=== PATIENT | female | born 1940 | race Two or more races ===

== ENCOUNTER 2023-05-10 19:26 | Inpatient (IN) | payer OTHER, MEDICAID ==
[~2023-05-10] VITALS: Ht 142.2 cm; Wt 51.0 kg
[2023-05-10 20:22] LABS: Basophils # (auto) 0 10 ^3/uL (0-0.2); Eosinophils # (auto) 0.2 10 ^3/uL (0-0.8); Monocytes # (auto) 0.6 10 ^3/uL (0-1.3)
[2023-05-10 20:24] LABS: Basophils % (auto) 0.7 % (0.0-2.0); Eosinophils % (auto) 3.4 % (0.0-7.0); Hematocrit 21.2 % (36.0-46.0); Lymphocytes # (auto) 2.2 10 ^3/uL (0.4-5.4); Lymphocytes % (auto) 34.1 % (10.0-50.0); Mean Corpuscular Hemoglobin 17.6 pg (28.0-32.0); Mean Corpuscular Hgb Conc. 29.6 g/dL (32.0-36.0); Mean Corpuscular Volume 59.4 fL (80.0-100.0); Monocytes % (auto) 9.2 % (0.0-12.0); Neutrophils # (auto) 3.4 10 ^3/uL (1.6-8.6); Neutrophils % (auto) 52.6 % (37.0-80.0); Red Blood Cells 3.57 10^6/uL (4.0-5.20); Red Cell Distribution Width 17.9 % (11.8-14.3); White Blood Cell 6.4 10^3/uL (4.4-10.8)
[2023-05-10 20:28] LABS: Hemoglobin 6.3 g/dL (12.2-16.2)
[2023-05-10 20:38] LABS: Alanine Aminotransferase 15 U/L (7-40); Albumin 4.9 g/dL (3.2-4.8); Alkaline Phosphatase 94 U/L (46-116); Anion Gap 7 (5-15); Aspartate Aminotransferase 15 U/L (13-40); BUN/Creatinine Ratio 12.9 (10.0-20.0); Bilirubin, Total 0.4 mg/dL (0.2-1.0); Blood Urea Nitrogen 13 mg/dL (9-23); Calcium 9.1 mg/dL (8.7-10.4); Carbon Dioxide 25 mmol/L (20-30); Chloride 108 mmol/L (98-107); Glucose 108 mg/dL (74-106); Potassium 4.1 mmol/L (3.5-5.1); Sodium 140 mmol/L (136-145)
[2023-05-10 20:41] LABS: Anisocytosis Moderate; Hypochromia Marked; Ovalocytes FEW; Platelet Estimate Adequate
[2023-05-10 20:42] LABS: Large Platelets FEW
[2023-05-10 21:04] LABS: Urine Bacteria FEW /hpf (None Seen); Urine Blood Negative /uL (Negative); Urine Clarity Clear (Clear); Urine Color Colorless (Yellow); Urine Mucus FEW (None Seen); Urine Protein, UAD Negative (Negative); Urine Specific Gravity 1.007 (1.001-1.035); Urine Urobilinogen Normal (Negative); Urine WBC <1 /hpf (0 - 5); Urine pH 7.5 (5.0-8.0)
[2023-05-10] MEDS ORDERED: DOCUSATE SOD 100 MG CAP PO PRN (21:15)
[2023-05-10] MEDS ORDERED: MORPHINE SULFATE INJ 2 MG/ml SYRG IV PRN (21:15)
[2023-05-10] MEDS ORDERED: NITROGLYCERIN 0.4 MG SL TAB SL PRN (21:15)
[2023-05-10] MEDS ORDERED: ACETAMINOPHEN 325 MG TAB PO PRN (21:15)
[2023-05-10] MEDS ORDERED: ONDANSETRON HCL 4 MG/2 ML VIAL IV PRN (21:15)
[2023-05-10] MEDS ORDERED: HYDROcodone-ACET 5/325MG TAB PO PRN (21:15)
[2023-05-10 22:32] VITALS: PULSE 94; RESP 33; O2SAT 99
[2023-05-10] MEDS: ATORVASTATIN 20 MG TAB PO SCH (22:42)
[2023-05-10] MEDS: CARVEDILOL 3.125 MG TAB PO SCH (22:45)
[2023-05-10] MEDS: FAMOTIDINE (10MG/ML) 2ML VL IV SCH (22:45)
[2023-05-10] MEDS: SODIUM CHLOR 0.9% PF (SALINE LOCK) 10ML VIAL/SYR IV SCH (22:45)
[2023-05-10 23:06] LABS: % Iron Saturation 2.2 % (15-50)
[2023-05-10 23:25] LABS: Ferritin 2.6 ng/mL (10-291); Folate (Folic Acid) 14.55 ng/mL (>5.38)
[2023-05-10] MEDS: hydrALAZINE HCL 20 MG/ML VL IV PRN (23:57)
[2023-05-11] VITALS (16 sets, daily range): BP systolic 101–175; BP diastolic 32–71; PULSE 67–89; RESP 13–18; TEMP 98.1–98.6; O2SAT 95–99
[2023-05-11] MEDS ORDERED: hydrALAZINE HCL 20 MG/ML VL IV ONE (01:15)
[2023-05-11] MEDS ORDERED: ALEN70TA74 PO (03:12)
[2023-05-11] MEDS ORDERED: GABA-1308 PO (03:12)
[2023-05-11] MEDS ORDERED: FURO20TA3 PO (03:12)
[2023-05-11] MEDS ORDERED: PANT40TA2 PO (03:12)
[2023-05-11] MEDS ORDERED: ATOR20TA PO (03:12)
[2023-05-11] MEDS ORDERED: METO-158 PO (03:12)
[2023-05-11] MEDS: SODIUM CHLOR 0.9% PF (SALINE LOCK) 10ML VIAL/SYR IV SCH ×3 (05:19→23:50)
[2023-05-11] MEDS: hydrALAZINE HCL 20 MG/ML VL IV PRN ×2 (05:19→16:26)
[2023-05-11 09:09] LABS: Alanine Aminotransferase 12 U/L (7-40); Albumin 4.5 g/dL (3.2-4.8); Alkaline Phosphatase 72 U/L (46-116); Anion Gap 8 (5-15); Aspartate Aminotransferase 18 U/L (13-40); BUN/Creatinine Ratio 12.3 (10.0-20.0); Blood Urea Nitrogen 9 mg/dL (9-23); Calcium 8.8 mg/dL (8.7-10.4); Carbon Dioxide 23 mmol/L (20-30); Chloride 110 mmol/L (98-107); Glucose 106 mg/dL (74-106); Potassium 3.2 mmol/L (3.5-5.1); Sodium 141 mmol/L (136-145)
[2023-05-11 09:10] LABS: Bilirubin, Total 0.7 mg/dL (0.2-1.0); Total Protein 6.7 g/dL (5.7-8.2)
[2023-05-11 09:28] LABS: Basophils # (auto) 0 10 ^3/uL (0-0.2); Eosinophils # (auto) 0.1 10 ^3/uL (0-0.8); Hemoglobin 8.2 g/dL (12.2-16.2); Lymphocytes # (auto) 1.1 10 ^3/uL (0.4-5.4)
[2023-05-11 09:31] LABS: Basophils % (auto) 0.6 % (0.0-2.0); Eosinophils % (auto) 1.7 % (0.0-7.0); Hematocrit 26.1 % (36.0-46.0); Lymphocytes % (auto) 18.5 % (10.0-50.0); Mean Corpuscular Hemoglobin 20.9 pg (28.0-32.0); Mean Corpuscular Hgb Conc. 31.3 g/dL (32.0-36.0); Mean Corpuscular Volume 66.8 fL (80.0-100.0); Monocytes # (auto) 0.5 10 ^3/uL (0-1.3); Monocytes % (auto) 8.8 % (0.0-12.0); Neutrophils # (auto) 4.2 10 ^3/uL (1.6-8.6); Neutrophils % (auto) 70.4 % (37.0-80.0); Nucleated Red Blood Cells % 0.1 %; Red Blood Cells 3.91 10^6/uL (4.0-5.20); Red Cell Distribution Width 18.3 % (11.8-14.3)
[2023-05-11] MEDS: FAMOTIDINE (10MG/ML) 2ML VL IV SCH ×2 (11:15→23:50)
[2023-05-11] MEDS: CARVEDILOL 3.125 MG TAB PO SCH (11:15)
[2023-05-11] MEDS: FUROSEMIDE 20 MG/2 ML VIAL IV SCH (11:15)
[2023-05-11 15:27] LABS: % Iron Saturation 8.1 % (15-50)
[2023-05-11 15:30] LABS: Folate (Folic Acid) 15.17 ng/mL (>5.38)
[2023-05-11] MEDS ORDERED: POTASSIUM CHL 20 Meq TABLET PO ONE (15:30)
[2023-05-11] MEDS ORDERED: METOPROLOL TARTRATE 50 MG TAB PO ONE (15:30)
[2023-05-11] MEDS: ATORVASTATIN 20 MG TAB PO SCH (21:48)
[2023-05-11] MEDS: METOPROLOL TARTRATE 50 MG TAB PO SCH (21:48)
[2023-05-12] MEDS: hydrALAZINE HCL 20 MG/ML VL IV PRN ×2 (00:01→13:40)
[2023-05-12 05:19] LABS: Basophils # (auto) 0 10 ^3/uL (0-0.2); Basophils % (auto) 0.4 % (0.0-2.0); Eosinophils # (auto) 0.1 10 ^3/uL (0-0.8); Hemoglobin 10.4 g/dL (12.2-16.2); Lymphocytes # (auto) 1.3 10 ^3/uL (0.4-5.4); Monocytes # (auto) 0.9 10 ^3/uL (0-1.3); Neutrophils # (auto) 5.8 10 ^3/uL (1.6-8.6)
[2023-05-12 05:20] LABS: Eosinophils % (auto) 1.1 % (0.0-7.0); Hematocrit 32.5 % (36.0-46.0); Lymphocytes % (auto) 15.7 % (10.0-50.0); Mean Corpuscular Hemoglobin 22.5 pg (28.0-32.0); Mean Corpuscular Volume 70.3 fL (80.0-100.0); Monocytes % (auto) 11.6 % (0.0-12.0); Neutrophils % (auto) 71.2 % (37.0-80.0); Red Blood Cells 4.63 10^6/uL (4.0-5.20); White Blood Cell 8.1 10^3/uL (4.4-10.8)
[2023-05-12 05:22] LABS: Red Cell Distribution Width 34.5 % (11.8-14.3)
[2023-05-12 05:25] VITALS: BP 122/51; PULSE 77; RESP 18; TEMP 98.8; O2SAT 97
[2023-05-12 05:42] LABS: Alanine Aminotransferase 11 U/L (7-40); Albumin 4.1 g/dL (3.2-4.8); Alkaline Phosphatase 72 U/L (46-116); Anion Gap 9 (5-15); Aspartate Aminotransferase 15 U/L (13-40); BUN/Creatinine Ratio 10.3 (10.0-20.0); Blood Urea Nitrogen 8 mg/dL (9-23); Carbon Dioxide 21 mmol/L (20-30); Chloride 109 mmol/L (98-107); Glucose 108 mg/dL (74-106); Potassium 3.4 mmol/L (3.5-5.1); Sodium 139 mmol/L (136-145)
[2023-05-12 05:43] LABS: Bilirubin, Total 1.5 mg/dL (0.2-1.0); Total Protein 6.7 g/dL (5.7-8.2)
[2023-05-12] MEDS: SODIUM CHLOR 0.9% PF (SALINE LOCK) 10ML VIAL/SYR IV SCH (06:00)
[2023-05-12 07:30] VITALS: BP 189/82; PULSE 65; PULSE 71; TEMP 37.1
[2023-05-12 08:00] VITALS: PULSE 76; RESP 16
[2023-05-12 09:00] VITALS: BP 187/83; PULSE 76; RESP 16; TEMP 98.5; O2SAT 100
[2023-05-12] MEDS ORDERED: SODIUM CHLORIDE 0.9% 1,000 ML IV SCH (10:00)
[2023-05-12] MEDS ORDERED: POTASSIUM CHL 20 Meq TABLET PO ONE (10:00)
[2023-05-12] MEDS: METOPROLOL TARTRATE 50 MG TAB PO SCH (10:13)
[2023-05-12] MEDS: FAMOTIDINE (10MG/ML) 2ML VL IV SCH (10:14)
[2023-05-12] MEDS: FUROSEMIDE 20 MG/2 ML VIAL IV SCH (10:14)
== END 2023-05-12 15:15 | disposition left against medical advice (07) | DRG 811 ==
LOC: ER 19:26 → TELE 21:18 → TELE-EAST 05-11 00:44
PROVIDERS: ADMIT Nurse Practitioner Family; ATTEND Family Medicine
PROC: 30233N1 Transfusion of Nonautologous Red Blood Cells into Peripheral Vein, Percutaneous Approach (ICD-10-PCS; principal; 2023-05-11)
DX: D64.9 Anemia, unspecified (principal); I50.33 Acute on chronic diastolic (congestive) heart failure; E44.0 Moderate protein-calorie malnutrition; E78.5 Hyperlipidemia, unspecified; I11.0 Hypertensive heart disease with heart failure; E87.6 Hypokalemia; R79.89 Other specified abnormal findings of blood chemistry; Z53.29 Procedure and treatment not carried out because of patient's decision for other reasons; Z68.25 Body mass index [BMI] 25.0-25.9, adult
CPT/HCPCS: 36415; 36430; 71045; 80053; 81001; 82378; 82607; 82728; 82746; 83540; 83550; 83615; 83880; 84484; 85025; 85045; 86850; 86900; 86901; 86920; 93005; 93306; 96374; 99291; G0378; J3490

== ENCOUNTER 2024-09-10 15:04 | Emergency (ER) | payer OTHER, MEDICAID ==
[~2024-09-10] VITALS: Ht 149.9 cm; Wt 5.0 kg
[~2024-09-10 15:04] MED LIST: ALEN70TA74 PO; ATOR20TA PO; FURO20TA3 PO; GABA-1308 PO; METO-158 PO; PANT40TA2 PO
[2024-09-10 15:20] VITALS: BP 154/64
[2024-09-10 15:42] VITALS: PULSE 68; RESP 18; O2SAT 98
--- NOTE | 2024-09-10 16:07 | DVH ---
CHEST RADIOGRAPH Indication: low K Technique: Single frontal view of the chest was obtained Comparison: XY CHEST XRAY 1 VIEW on DOS: 05/11/23 FINDINGS: Lines and Tubes: None Lungs: Minimal right lower lung zone opacity. Metallic densities overlying the midline lower mediasti num which is most likely external to the patient Pleura: No effusion. No pneumothorax. Cardiomediastinal contours: Borderline cardiomegaly with mild atherosclerotic calcification and uncoi ling of the aorta Bones: No acute osseous abnormality. IMPRESSION: Right lower lung zone pneumonia/atelectasis.
--- NOTE | 2024-09-10 16:08 | ED.PDOC ---
History of Present Illness HPI Comments HPI: 84 year old female accompanied by daughter presents to the ED with chief complaint of abnormal labs. Daughter reports that the patient had labs drawn on Sunday, ordered by her PCP. Daughter relays that the patient had received a call today from her PCP noting low Potassium and was advised to come to the ED for treatment. Patient denies any and all symptoms at this time. Initial Vitals: Temp: 97.8F BP: 154/64 HR: 69 RR: 18 O2 Sat.: 98% Past Medical History: HTN, CHF Past Surgical History: Oophorectomy Social History: Denies smoking, ETOH, and drug use Medication: Metoprolol, Furosemide Allergies: NKDA ZHANG: HPI: Poor Historian. REVIEW OF SYSTEMS: CONSTITUTIONAL: Denies acute: fever, diaphoresis, chills, generalized weakness. HEAD: Denies acute: headache, photophobia Eyes: Denies acute: Double vision, vision loss, eye pain, eye discharge. EARS: Denies acute: tinnitus, hearing loss, ear discharge, ear pain, THROAT: Denies acute: sore throat, swelling, difficulty swallowing , pain with swallowing, change in voice. NECK: Denies acute: neck pain, neck swelling, stiff neck. HEART: Denies acute : chest pain, palpitations, LUNGS: Denies acute: SOB, wheezing, cough, hemoptysis ABDOMEN: Denies acute: abdominal pain, Nausea, Vomiting, diarrhea, melena , hematemesis, hematochezia SKIN: Denies acute: rash, redness, lesions, itchiness. EXTREMITIES: Denies acute: calf pain, numbness, tingling, weakness, denies pain in extremity. Denies acute: Low back pain. Neuro: Denies acute: focal neurological deficit, motor or sensory focal neurological deficit, tremors, seizure like activity, confusion, dizziness, change in mental status, loss of bowel or bladder function, cauda equina like symptoms. : Denies acute: dysuria, hematuria, flank pain, increase in urinary frequency. PSYCH: Denies acute: hallucination, suicidal ideation, homicidal ideation. FEMALE: Denies acute: abnormal vaginal bleeding, foul odor, unusual discharge. PHYSICAL EXAM: General: no acute distress, awake and alert. Head: normocephalic, atraumatic. Neck: supple, trachea is midline, no swelling. Throat: Normal phonation. Eyes:, no erythema, no purulent discharge, no proptosis, no icterus. Heart: regular rate, regular rhythm, no significant murmur appreciated. Lungs: no apparent respiratory distress, Able to speak in full sentences. No wheezing, no rhonchi, no crackles. No stridors Clear to auscultation bilaterally. Abdomen: non tender to palpation, non distended, soft, no guarding, no rebound, + bowel sounds. Neuro: Awake, Alert, oriented to name, self, situation, follows commands GCS=15. Speech is normal. Skin: no petechia, no purpura, no cyanosis, non-pale, not jaundice. Lower extremities: --no - Pitting edema no deformity, no focal swelling, no calf TTP. Makes eye contact. moves all four extremities. Face: no apparent facial droop. Ambulating in the ED independently. Chief Complaint: Abnormal LAB's Time Seen by MD: 16:04 Primary Care Provider: CRISTIAN Gonzalez Notes: Medications, Allergies Allergies: Coded Allergies: NO KNOWN ALLERGIES (Unverified , 05/10/23) Home Meds Active Scripts Amoxicillin & Pot Clavulanate (AUGMENTIN TABLET) 875 Mg Tb, 875 MG PO BID for 7 Days, #14 TAB Prov:LANCE ISRAEL DO 09/10/24 Reported Medications Alendronate Sodium (Alendronate Sodium) 70 Mg Tab, 70 MG PO DAILY, TAB 05/11/23 Atorvastatin Calcium (Lipitor) 20 Mg Tab, 1 TAB PO DAILY, #90 TAB 1 Refill 05/11/23 Gabapentin (Gabapentin) 100 Mg Cap, 100 MG PO DAILY for 30 Days, MG 05/11/23 Metoprolol Tartrate (Metoprolol Tartrate) 50 Mg Tab, 50 MG PO DAILY for 30 Days, MG 05/11/23 Pantoprazole Sodium Sesquihydr (Protonix) 40 Mg Tab, 20 MG PO DAILY, #30 TAB 05/11/23 Furosemide (Furosemide) 20 Mg Tab, 20 MG PO BIDD for 30 Days, MG 05/11/23 Information Source: Patient Mode of Arrival: Ambulatory Was a procedure done? Was a procedure done?: No X-Ray, Labs, Meds, VS Vital Signs Date Time Temp Pulse Resp B/P (MAP) Pulse Ox O2 Delivery O2 Flow Rate FiO2 09/10/24 15:42 68 1/22/25 15:42 18 98 Room Air* 0 21 09/10/24 15:20 97.8 69 18 154/64 (94) 98 Lab Test 09/10/24 16:47 09/10/24 15:27 Range/Units White Blood Count 6.0 4.4-10.8 10^3/uL Red Blood Count 4.49 4.0-5.20 10^6/uL Hemoglobin 12.6 12.2-16.2 g/dL Hematocrit 36.7 36.0-46.0 % Mean Corpuscular Volume 81.7 80.0-100.0 fL Mean Corpuscular Hemoglobin 28.1 28.0-32.0 pg Mean Corpuscular Hemoglobin Concent 34.4 32.0-36.0 g/dL Red Cell Distribution Width 14.8 H 11.8-14.3 % Platelet Count 418 140-450 10^3/uL Mean Platelet Volume 7.4 6.9-10.8 fL Neutrophils (%) (Auto) 67.2 37.0-80.0 % Lymphocytes (%) (Auto) 20.2 10.0-50.0 % Monocytes (%) (Auto) 9.7 0.0-12.0 % Eosinophils (%) (Auto) 2.3 0.0-7.0 % Basophils (%) (Auto) 0.6 0.0-2.0 % Neutrophils # (Auto) 4.0 1.6-8.6 10 ^3/uL Lymphocytes # (Auto) 1.2 0.4-5.4 10 ^3/uL Monocytes # (Auto) 0.6 0-1.3 10 ^3/uL Eosinophils # (Auto) 0.1 0-0.8 10 ^3/uL Basophils # (Auto) 0 0-0.2 10 ^3/uL Nucleated Red Blood Cells 0.1 % Sodium Level 136 136-145 mmol/L Potassium Level 3.6 3.5-5.1 mmol/L Chloride Level 97 L 98-107 mmol/L Carbon Dioxide Level 33 H 20-31 mmol/L Anion Gap 6 5-15 Blood Urea Nitrogen 43 H 9-23 mg/dL Creatinine 1.13 H 0.550-1.02 mg/dL Glomerular Filtration Rate Calc 48 >90 mL/min BUN/Creatinine Ratio 38.1 H 10.0-20.0 Serum Glucose 107 H 74-106 mg/dL Calcium Level 10.1 8.7-10.4 mg/dL Magnesium Level 2.9 H 1.6-2.6 mg/dL Total Bilirubin 0.6 0.2-1.0 mg/dL Aspartate Amino Transferase (AST) 30 13-40 U/L Alanine Aminotransferase (ALT) 18 7-40 U/L Alkaline Phosphatase 109 46-116 U/L Troponin I High Sensitivity 18 </=34 ng/L B-Type Natriuretic Peptide 119.48 0-100 pg/mL Total Protein 7.2 5.7-8.2 g/dL Albumin 4.6 3.2-4.8 g/dL Urine Color Colorless Yellow Urine Clarity Clear Clear Urine pH 7.0 5.0-9.0 Urine Specific Holcomb 1.009 1.001-1.035 Urine Protein Negative Negative Urine Ketones Negative Negative Urine Blood Negative Negative /uL Urine Nitrite Negative Negative Urine Bilirubin Negative Negative Urine Urobilinogen Normal Negative mg/dL Urine Leukocyte Esterase Trace Negative /uL Urine RBC <1 0 - 4 /hpf Urine Microscopic WBC 4 0-5 /HPF Urine Squamous Epithelial Cells Few <5 /hpf Urine Bacteria None seen None Seen /hpf Urine Glucose Normal Normal mg/dL [place] [address] Ph: [phone] DIAGNOSTIC IMAGING Diagnostic Imaging Report : [id number] Signed PATIENT: GARETH ANGULOACCT: [id number] UNIT: [id number] : 1940 LOC: ER ROOM / BED: / AGE / SEX: 84 / F ADM STATUS: REG ER SERVICE 1535 ORDERING PHYSICIAN: LANCE ISRAEL DO PROCEDURE(s): CXRP - CHEST PORTABLE REASON: low K ORDER NUMBER(s): [id number], ACCESSION NUMBER(s): [id number] CHEST RADIOGRAPH Indication: low K Technique: Single frontal view of the chest was obtained Comparison: XY CHEST XRAY 1 VIEW on DOS: 05/11/23 FINDINGS: Lines and Tubes: None Lungs: Minimal right lower lung zone opacity. Metallic densities overlying the midline lower mediastinum which is most likely external to the patient Pleura: No effusion. No pneumothorax. Cardiomediastinal contours: Borderline cardiomegaly with mild atherosclerotic calcification and uncoiling of the aorta Bones: No acute osseous abnormality. IMPRESSION: Right lower lung zone pneumonia/atelectasis. ATED BY: SONYA VELASQUEZ DO DICTATED DATE/TIME: 09/10/241604 SIGNED BY: SONYA VELASQUEZ DO SIGNED DATE/TIME: 09/10/241604 CC: Time of 1ST Reevaluation: 17:04 Reevaluation 1ST: Unchanged Patient Education/Counseling: Diagnosis, Treatment Family Education/Counseling: Diagnosis, Treatment Comments Patient presented with the above HPI.-- ABNORMAL LABS---workup was initiated. patient was found with the above mentioned diagnosis. the following medications were ordered: ROCEPHIN, AMIODARONE X2 the following tests were ordered: LABS, CXR, EKG, UA Patient ED course and VS have been stabilized. Patient has been reassessed in the ED and remained in a stable condition. Pertinent incidental findings were discussed with the patient and/or family. Patient/family voices understanding and is agreeable with plan. Patient has been observed in the ED adequate length of time to insure improvement/stability. Escalation of care considered: Consideration of escalation to observation or admission Patient was DISCHARGED home in a stable condition. All the reports of any imaging studies that were ordered by myself were reviewed by myself. Departure 1 Departure Time of Disposition: 17:06 Impression: Primary Impression: Pneumonia Disposition: 01 HOME / SELF CARE / HOMELESS Condition: Stable Additional Instructions: Additional discharge instructions: You MUST follow-up with your primary care/family doctor in 1 to 2 days. If you are unable to see your primary care/family doctor, please return to our emergency room for re-assessment and re-evaluation in 1 to 2 days. Return to the emergency room here in our facility or to the nearest ER [facility] if your symptoms change or worsen. CONSULTATIONS: you MUST Follow-up for consultation as soon as possible with: -pulmonology and cardiology in 1-2 days. Please call for appointment. You MUST call the consultants office yourself to make an appointment. You may need to arrange that through your insurance and/or your primary/family doctor. If you are unable to see the application packaging consultant in 1 to 2 days, you must return to our emergency room (or any other ER of your choice) for re-assessment and re- evaluation. Adequate fluid hydration. Below is a copy of your radiological report for follow up: [address] [address] Ph: [phone] DIAGNOSTIC IMAGING Diagnostic Imaging Report : [id number] Signed PATIENT: GARETH ANGULO ACCT: [id number] UNIT: [id number] : 1940 LOC: ER ROOM / BED: / AGE / SEX: 84 / F ADM STATUS: REG ER SERVICE 1535 ORDERING PHYSICIAN: LANCE ISRAEL DO PROCEDURE(s): CXRP - CHEST PORTABLE REASON: low K ORDER NUMBER(s): [id number], ACCESSION NUMBER(s): [id number] CHEST RADIOGRAPH Indication: low K Technique: Single frontal view of the chest was obtained Comparison: XY CHEST XRAY 1 VIEW on DOS: 05/11/23 FINDINGS: Lines and Tubes: None Lungs: Minimal right lower lung zone opacity. Metallic densities overlying the midline lower mediastinum which is most likely external to the patient Pleura: No effusion. No pneumothorax. Cardiomediastinal contours: Borderline cardiomegaly with mild atherosclerotic calcification and uncoiling of the aorta Bones: No acute osseous abnormality. IMPRESSION: Right lower lung zone pneumonia/atelectasis. ATED BY: SONYA VELASQUEZ DO DICTATED DATE/TIME: 09/10/24 1605 SIGNED BY: SONYA VELASQUEZ DO SIGNED DATE/TIME: 09/10/24 1605 CC: e-Prescriptions Amoxicillin & Pot Clavulanate (AUGMENTIN TABLET) 875 Mg Tb 875 MG PO BID for 7 Days, #14 TAB Prov: LANCE ISRAEL DO 09/10/24 Discharged With: Self, Relative Critical Care Note Critical Care Time?: No I personally scribed for LANCE ISRAEL DO ([email or web address]) on 09/10/24 at 16:08. Electronically submitted by Mart Gan ([email or web address]). I personally scribed for LANCE ISRAEL DO ([email or web address]) on 09/10/24 at 17:36. Electronically submitted by Mart Gan ([email or web address]). I personally scribed for LANCE ISRAEL DO ([email or web address]) on 09/10/24 at 20:54. Electronically submitted by Marisol Mccain ([email or web address]). I personally scribed for LANCE ISRAEL DO ([email or web address]) on 09/10/24 at 21:40. Electronically submitted by Marisol Mccain ([email or web address]). LANCE ISRAEL DO Sep 10, 2024 16:08
[2024-09-10 17:20] LABS: Basophils # (auto) 0 10 ^3/uL (0-0.2); Basophils % (auto) 0.6 % (0.0-2.0); Eosinophils # (auto) 0.1 10 ^3/uL (0-0.8); Eosinophils % (auto) 2.3 % (0.0-7.0); Hematocrit 36.7 % (36.0-46.0); Hemoglobin 12.6 g/dL (12.2-16.2); Lymphocytes # (auto) 1.2 10 ^3/uL (0.4-5.4); Lymphocytes % (auto) 20.2 % (10.0-50.0); Mean Corpuscular Hemoglobin 28.1 pg (28.0-32.0); Mean Corpuscular Hgb Conc. 34.4 g/dL (32.0-36.0); Mean Corpuscular Volume 81.7 fL (80.0-100.0); Monocytes # (auto) 0.6 10 ^3/uL (0-1.3); Monocytes % (auto) 9.7 % (0.0-12.0); Neutrophils % (auto) 67.2 % (37.0-80.0); Nucleated Red Blood Cells % 0.1 %; Platelet Count (auto) 418 10^3/uL (140-450); Red Blood Cells 4.49 10^6/uL (4.0-5.20); Red Cell Distribution Width 14.8 % (11.8-14.3)
[2024-09-10 17:32] LABS: Alanine Aminotransferase 18 U/L (7-40); Alkaline Phosphatase 109 U/L (46-116); Anion Gap 6 (5-15); Aspartate Aminotransferase 30 U/L (13-40); BUN/Creatinine Ratio 38.1 (10.0-20.0); Calcium 10.1 mg/dL (8.7-10.4); Potassium 3.6 mmol/L (3.5-5.1); Sodium 136 mmol/L (136-145)
[2024-09-10 17:33] LABS: Albumin 4.6 g/dL (3.2-4.8); Bilirubin, Total 0.6 mg/dL (0.2-1.0); Total Protein 7.2 g/dL (5.7-8.2)
[2024-09-10 17:39] LABS: Blood Urea Nitrogen 43 mg/dL (9-23); Carbon Dioxide 33 mmol/L (20-31); Chloride 97 mmol/L (98-107); Glucose 107 mg/dL (74-106); Magnesium 2.9 mg/dL (1.6-2.6)
[2024-09-10] MEDS ORDERED: AUG875T PO (17:58)
[2024-09-10 19:28] LABS: Urine Bacteria None Seen /hpf (None Seen)
[2024-09-10 19:47] LABS: Urine Blood Negative /uL (Negative); Urine Clarity Clear (Clear); Urine Color Colorless (Yellow); Urine Protein, UAD Negative (Negative); Urine Specific Gravity 1.009 (1.001-1.035); Urine Squamous Epithelial Cell FEW /hpf (<5); Urine Urobilinogen Normal (Negative); Urine WBC 4 /HPF (0-5)
[2024-09-10] MEDS ORDERED: AMIODARONE 360 MG/200 ML IV ONE (19:48)
[2024-09-10] MEDS ORDERED: AMIODARONE BOLUS KIT 0 ML IV ONE (19:49)
[2024-09-10] MEDS: cefTRIAXone 1GM/50ML D5W 50 ML IV ONE (21:36)
--- NOTE | 2024-09-12 13:04 | ECG ---
[facility] Test Date: 2024-09-10 Test Time: 15:42:12 Pat Name: GARETH HINOJOSA Department: ER Room: Gender: F Family Support Worker: : 1940 Requested By: LANCE ISRAEL Order Number: [id number] MD: Fabiano Angelo Measurements Intervals [place] Rate: 68 P: 79 TX: 176 QRS: 46 QRSD: 90 T: 91 QT: 418 QTc: 445 Interpretive Statements Sinus rhythm Ventricular premature complex Borderline repolarization abnormality Electronically Signed On 09-12-2024 17:07:21 PST by Fabiano Angelo Please click the below link to view image of tracing.
== END 2024-09-10 21:28 | disposition home or self-care (01) ==
LOC: ER 15:11
DX: J18.9 Pneumonia, unspecified organism (principal); I10 Essential (primary) hypertension; Z98.890 Other specified postprocedural states; Z88.8 Allergy status to other drugs, medicaments and biological substances; Z88.6 Allergy status to analgesic agent
CPT/HCPCS: 36415; 71045; 80053; 81001; 83735; 83880; 84484; 85025; 93005